=== PATIENT | male | born 1950 | race Caucasian/White ===

== ENCOUNTER → 2021-02-21 18:07 | Outpatient (CLI) | payer MEDICARE, SELFPAY ==
--- NOTE | 2021-02-21 18:13 | DI.MRI.S_ITS ---
PROCEDURE: MR LUMBAR SPINE WO CON INDICATIONS: OTHER SPONDYLOSIS, LUMBAR REGION TECHNIQUE: Noncontrast sagittal T1 spin echo and T2 fast echo, sagittal STIR, axial T1 and T2 fast spin echo through the lumbar spine. In cases with scoliosis, additional coronal T2 fast spin echo may be performed. COMPARISON: None. FINDINGS: Image quality: Excellent. Alignment and Curvature: Mild degenerative retrolisthesis of L4 on L5 measuring 7 mm. Bone Marrow: Marrow is of normal overall signal. No acute vertebral body compression fractures. Spinal Cord: Conus medullaris terminates at the L1-L2 level. Visualized cord demonstrates normal signal and size. Paraspinous Soft Tissues: No paravertebral masses. T12-L1: Disc bulge. Mild facet hypertrophy. No canal stenosis or foraminal stenosis. L1-L2: Left paracentral annulus tear. Mild diffuse disc bulge with superimposed small left paracentral disc protrusion, with some degree of impingement on the left L2 nerve root in the left lateral recess suspected. No significant foraminal stenosis. Bilateral facet hypertrophy. L2-L3: Moderate diffuse disc bulge, with indentation on the ventral surface of the thecal sac, and facet and ligament hypertrophy. [id number] canal stenosis. Mild bilateral foraminal narrowing. L3-L4: Moderately severe disc height loss. Disc bulge. Facet and ligament hypertrophy. Mild central canal stenosis. Mild right foraminal narrowing with mild to moderate left foraminal narrowing. There is flattening deformity on the exiting left L3 nerve root. L4-L5: Mild degenerative retrolisthesis of L4 on L5. Facet and ligament hypertrophy. Mild canal stenosis. [id number] bilateral foraminal narrowing with flattening deformity on the exiting bilateral L4 nerve roots. L5-S1: Disc bulge. Facet hypertrophy. No significant canal stenosis. Mild bilateral foraminal narrowing. IMPRESSION: 1. Diffuse degenerative change. 2. At L1-L2, there is left paracentral annulus tear. There is a small left paracentral disc protrusion with mild impingement on the left L2 nerve root in the foramen. 3. Canal stenosis is mild to moderate at L2-L3 and mild at L3-L4 and mild at L4-L5. 4. Multilevel facet arthropathy. 5. Multilevel foraminal narrowing as described above. Dictated by: Jaylen Holley M.D. on 02/24/2021 at 9:06 Approved by: Jaylen Holley M.D. on 02/24/2021 at 9:14
== END ==
PROVIDERS: Referring Provider Internal Medicine; Visit Provider Internal Medicine
DX: M47.896 Other spondylosis, lumbar region (principal); M48.061 Spinal stenosis, lumbar region without neurogenic claudication
CPT/HCPCS: 72148